=== PATIENT | female | born 1995 | race Caucasian/White ===

== ENCOUNTER 2024-03-31 00:39 | Inpatient (IN) | payer BC ==
[2024-03-31 01:02] VITALS: BMI 31.2
[2024-03-31] MEDS ORDERED: Tranexamic Acid 1,000 MG/10 ML VIAL IVP PRN (05:22)
[2024-03-31] MEDS: fentaNYL 50 mcg/mL 1 mL Vial SLOW IVP PRN (05:26)
[2024-03-31] MEDS ORDERED: Carboprost 250 MCG/ML AMP IM PRN (05:30)
[2024-03-31] MEDS ORDERED: Promethazine HCl 25 MG/ML VIAL IM PRN ×2 (05:30→09:15)
[2024-03-31] MEDS ORDERED: Misoprostol 200 MCG TAB RC PRN (05:30)
[2024-03-31] MEDS ORDERED: Lidocaine 1% (PF) 30 ML VIAL SC PRN (05:30)
[2024-03-31] MEDS ORDERED: Lactated Ringer's 1,000 ML IV SCH (05:30)
[2024-03-31] MEDS ORDERED: hydrALAZINE 20 MG/ML VIAL SLOW IVP PRN ×2 (05:30→19:39)
[2024-03-31] MEDS ORDERED: Oxytocin 30 units/NS 500 ML 500 ML IVPB SCH (05:30)
[2024-03-31] MEDS ORDERED: Oxytocin 30 units/NS 500 ML 500 ML IV SCH ×2 (05:30→19:39)
[2024-03-31] MEDS ORDERED: Acetaminophen 500 MG TAB PO PRN (05:30)
[2024-03-31] MEDS ORDERED: Diphenoxylate HCl/Atropine Tablet PO PRN ×2 (05:30)
[2024-03-31 05:45] LABS: HBsAg Index 0.17 S/CO (0-0.99); Hep B Surf Ag - L&D Non-Reactive S/CO (NonReactive)
[2024-03-31 05:46] LABS: Syphilis Antibody Nonreactive (Nonreactive); Syphilis Antibody Index 0.06 S/CO (<1.00 Non-Reactive)
[2024-03-31 05:50] LABS: Hematocrit 36.5 % (34.9-44.5); Hemoglobin 13.1 g/dL (12.0-15.5); Mean Corpuscular HGB CONC 35.9 g/dL (32.0-36.0); Mean Corpuscular Hemoglobin 32.3 pg (27.0-33.0); Mean Corpuscular Volume 89.9 fl (81.6-98.3); Mean Platelet Volume 9.9 fl (7.4-10.4); Platelet Count 211 10x3/uL (150-450); RBC Distribution Width 12.6 % (11.5-14.5); Red Blood Cell (RBC) Count 4.06 10x6/uL (3.90-5.03); White Blood Cell (WBC) Count 12.3 10x3/uL (3.5-10.5)
[2024-03-31] MEDS: fentaNYL 2 mcg/Ropivacaine 0.2% Epidural 100 ML CADD EPIDURAL SCH (09:05)
[2024-03-31] MEDS ORDERED: Naloxone HCl 0.4 mg/ml Vial IVP PRN ×2 (09:15)
[2024-03-31] MEDS ORDERED: Moisturizing Cream (Eucerin) 113 GM JAR TOP PRN (09:15)
[2024-03-31] MEDS ORDERED: diphenhydrAMINE 50 MG/ML VIAL IVP PRN (09:15)
[2024-03-31] MEDS ORDERED: Lactated Ringer's 500 ML IV PRN (09:15)
[2024-03-31] MEDS ORDERED: Communication Order-Pharmacy FS SCH (09:15)
[2024-03-31] MEDS ORDERED: ePHEDrine Sulfate 50 MG/10 ML VIAL SLOW IVP PRN (09:15)
[2024-03-31] MEDS ORDERED: Ondansetron PF 4 MG/2 ML Vial IVP PRN ×2 (09:15→19:39)
[2024-03-31] MEDS ORDERED: Acetaminophen 325 MG TAB PO PRN ×2 (09:15→19:39)
[2024-03-31] MEDS: Lactated Ringer's 1,000 ML IV SCH (14:00)
[2024-03-31] MEDS: Ondansetron PF 4 MG/2 ML Vial IVP PRN (16:15)
[2024-03-31] MEDS: Methylergonovine 0.2 MG/ML VIAL IM PRN (17:40)
[2024-03-31 17:56] LABS: Analyzer IN Cardio CS NICU
[2024-03-31 17:57] LABS: Analyzer IN Cardio CS NICU; RapidComm Collect By L&D nurse; pH (Cord, venous) 7.273 (7.250-7.350)
[2024-03-31] MEDS ORDERED: Milk Of Magnesia 30 ML UDCUP PO PRN (19:39)
[2024-03-31] MEDS ORDERED: Lanolin Ointment 7 GM TUBE TOP PRN (19:39)
[2024-03-31] MEDS ORDERED: Boostrix 0.5 ML (Tdap) VIAL (>/=7 yrs of age) IM ONE (19:39)
[2024-03-31] MEDS ORDERED: Methylergonovine 0.2 MG/ML VIAL IM PRN (19:39)
[2024-03-31] MEDS ORDERED: Bisacodyl 10 MG SUPP PR PRN (19:39)
[2024-03-31] MEDS ORDERED: Misoprostol 200 MCG TAB VAG PRN (19:39)
[2024-03-31] MEDS ORDERED: diphenhydrAMINE 25 MG CAP PO PRN (19:39)
[2024-03-31] MEDS: Ibuprofen 800 MG TAB PO SCH (19:52)
[2024-03-31] MEDS: fentaNYL/Ropivacaine Epidural 100 ML ONE (20:50)
[2024-03-31] MEDS: Docusate 100 MG CAP PO SCH (21:31)
[2024-04-01 04:20] LABS: Hematocrit 32.8 % (34.9-44.5); Hemoglobin 11.6 g/dL (12.0-15.5)
[2024-04-01] MEDS: Ferrous Sulfate 325 MG TAB PO SCH (08:37)
[2024-04-01] MEDS: Prenatal Vitamin 1 TAB PO SCH (08:40)
[2024-04-01] MEDS ORDERED: Bupivacaine PF 0.5% 30 ML VIAL ONE (19:54)
[2024-04-01] MEDS ORDERED: Bupivacaine 0.25% HCL 30 ML VIAL ONE (19:54)
[2024-04-02] MEDS ORDERED: HYDROcodone/Acetaminophen 5/325 mg Tablet PO PRN (07:55)
[2024-04-02 08:40] VITALS: BP 112/60; TEMP 98.2
[2024-04-02] MEDS: Milk Of Magnesia 30 ML UDCUP PO SCH (09:46)
[2024-04-02] MEDS: Polyethylene Glycol 3350 17 GM Packet PO SCH (09:47)
[2024-04-02] MEDS: Acetaminophen 325 MG TAB PO SCH (09:47)
[2024-04-02] MEDS: Ibuprofen 800 MG TAB PO SCH (12:15)
[2024-04-03] MEDS ORDERED: Polyethylene Glycol 3350 17 GM Packet PO SCH (09:00)
== END 2024-04-02 14:25 | disposition home or self-care (01) | DRG 768 ==
LOC: CSHERS 00:39 → CSHLD 05:17 → CSHPP 20:45
PROVIDERS: ADMIT Obstetrics & Gynecology; ATTEND Obstetrics & Gynecology
PROC: 10E0XZZ Delivery of Products of Conception, External Approach (ICD-10-PCS; principal; 2024-03-31)
PROC: 0DQP0ZZ Repair Rectum, Open Approach (ICD-10-PCS; 2024-03-31)
PROC: 10907ZC Drainage of Amniotic Fluid, Therapeutic from Products of Conception, Via Natural or Artificial Opening (ICD-10-PCS; 2024-03-31)
DX: O69.81X0 Labor and delivery complicated by cord around neck, without compression, not applicable or unspecified (principal); Z37.0 Single live birth; O70.3 Fourth degree perineal laceration during delivery; Z3A.39 39 weeks gestation of pregnancy; Z79.899 Other long term (current) drug therapy
CPT/HCPCS: 36415; 82805; 85014; 85018; 85027; 86780; 86850; 86900; 86901; 87340; J0665; J2210; J2405; J3010; J7120